=== PATIENT | female | born 1975 | race Caucasian/White ===

== ENCOUNTER 2017-08-17 07:18 | Outpatient (CLI) | payer OTHER ==
--- NOTE | 2017-08-17 09:31 | MRI ---
RIGHT SHOULDER MRI WITHOUT IV CONTRAST: History: 41-year-old female with right shoulder pain following a fall in May. FINDINGS: AC joint arthrosis changes are noted with some downsloping of the lateral clavicle as well as down sl oping of the lateral acromion with some fluid and minimal fat stranding in the subacromial subdeltoid bursa. There is a prominent intraosseous subchondral cystic focus in the greater tuberosity. There i s some increased T2 hyperintensity at the insertion of the anterior supraspinatus tendon, probably re lated to a fairly high grade partial thickness tear but no evidence for associated retraction. Minima l increased signal in the supraspinatus tendon, evidence for some tendinopathy. There is also some te ndinopathy within the subscapularis tendon with a probably small partial thickness undersurface delam inating tear. Slight blunting and indistinction of the superior labrum has more the appearance of gary e minimal fraying rather than acute tear. Rotator cuff muscles are within normal limits in signal and volume. IMPRESSION: Prominent subchondral cystic focus of the greater tuberosity with some linear increased signal at the insertion of the anterior supraspinatus tendon, probably at least a midgrade partial thickness under surface tear. AC joint arthrosis changes with prominent downsloping of the lateral acromion. Suprasp inatus and subscapularis tendinopathy. Probable small undersurface and delaminating subscapularis ten don tear. Slight blunting of the superior labrum having more the appearance of some degenerative fray ing rather than an acute tear. Intact biceps tendon. Other findings as above. POS: ANUPAM
== END 2017-08-17 07:19 | disposition home or self-care (01) ==
LOC: MRI 07:18
PROVIDERS: ATTEND Family Medicine
DX: S49.91XA Unspecified injury of right shoulder and upper arm, initial encounter (principal); M25.811 Other specified joint disorders, right shoulder